=== PATIENT | female | born 1955 | race Caucasian/White ===

== ENCOUNTER → 2019-06-20 11:02 | Outpatient (CLI) | payer OTHER, SELFPAY ==
--- NOTE | 2019-06-20 | DI.MRI.S_ITS ---
PROCEDURE: MR CERVICAL SPINE WO CON INDICATIONS: Spinal stenosis, cervical region TECHNIQUE: Noncontrast sagittal T1 spin echo and T2 fast spin echo, sagittal STIR, foraminal oblique sagittal T2 fast spin echo, and axial gradient echo or T2 fast spin echo through the cervical spine. COMPARISON: [facility] [place], CR, XR CERVICAL SPINE 2 OR 3 VIEWS, 06/17/2019, 14:20. FINDINGS: Image quality: Excellent. Alignment and Curvature: There is loss of normal cervical lordosis. There is mild grade 1 anterolisthesis of C3 on C4. There is moderate one retrolisthesis of C4 on C5. Mild grade 1 retrolisthesis of C6 on C7. Mild reactive signal within the endplates adjacent to the C3-C4, C4-C5, C5-C6, C6-C7, and C7-T1 intervertebral discs. Bone Marrow: Marrow demonstrates normal overall signal. Spinal Cord: Visualized spinal cord has normal size and signal. No cerebellar tonsillar herniation. Paraspinous Soft Tissues: No paravertebral masses. Prevertebral soft tissues are normal in thickness. C2-C3: Moderate disc desiccation. Mild diffuse disc bulge. Mild bilateral facet hypertrophy. Mild uncovertebral hypertrophy bilaterally. Mild canal stenosis. Mild foraminal stenosis bilaterally. C3-C4: Moderate disc desiccation. Mild diffuse disc bulge. Mild facet and uncovertebral hypertrophy bilaterally. Mild canal stenosis. Mild bilateral foraminal stenosis. C4-C5: Moderate disc height loss and desiccation. Moderate diffuse disc bulge/osteophyte. Mild facet and uncovertebral hypertrophy bilaterally. Moderate canal stenosis. Moderate right greater than left foraminal stenosis. C5-C6: Moderate disc height loss and desiccation. Mild diffuse disc bulge/osteophyte. Moderate facet and uncovertebral hypertrophy bilaterally. Moderate canal stenosis. Severe right and moderate left foraminal stenosis. Right C6 nerve root compression. C6-C7: Moderate disc height loss and desiccation. Mild diffuse disc bulge/osteophyte with moderate superimposed broad-based left posterior lateral protrusion. Mild facet and uncovertebral hypertrophy bilaterally. Moderate to severe canal stenosis. Mild left cord flattening. Moderate bilateral foraminal stenosis. C7-T1: Moderate disc height loss and desiccation. Moderate diffuse disc bulge/osteophyte with superimposed left far lateral protrusion/osteophyte. Mild facet and uncovertebral hypertrophy bilaterally. Mild canal stenosis. Severe left and moderate right foraminal stenosis. Left C8 nerve root compression. IMPRESSION: 1. Multilevel degenerative disc and facet disease, as well as uncovertebral hypertrophy. 2. Multilevel canal stenoses, worst at C6-C7, where there is mild cord flattening present. 3. Multilevel foraminal stenoses, worst on the right at C5-C6, and on the left at C7-T1, where there is associated intraforaminal nerve root compression. Recommend correlation with clinical symptoms to ascertain relevance of this finding. Dictated by: Girish Sanchez M.D. on 06/20/2019 at 12:44 Approved by: Girish Sanchez M.D. on 06/20/2019 at 12:49
== END ==
PROVIDERS: PCP Family Medicine; Visit Provider Orthopaedic Surgery Orthopaedic Surgery of the Spine
DX: M48.02 Spinal stenosis, cervical region (principal); M50.31 Other cervical disc degeneration, high cervical region
CPT/HCPCS: 72141

== ENCOUNTER 2019-08-22 11:28 | Inpatient (IN) | payer OTHER, SELFPAY ==
[2019-08-11 13:41] VITALS: BMI 24.9
[2019-08-22] VITALS (14 sets, daily range): BP systolic 131–166; BP diastolic 52–92; PULSE 76–96; RESP 8–17; TEMP 36.1–36.7; O2SAT 92–99; BMI 24.9
--- NOTE | 2019-08-22 | DI.RAD.S_ITS ---
PROCEDURE: XR CERVICAL SPINE 2V OR 3V INDICATIONS: ACDF TECHNIQUE: 2 intraoperative view(s) of the cervical spine were acquired. COMPARISON: Cervical spine radiographs 06/17/2019. FINDINGS: New ACDF spanning C4-C7. No fractures or dislocations. Intervertebral body spacers. Endotracheal tube is in place. IMPRESSION: Expected position of the C4-C7 ACDF. Dictated by: Aba Licea M.D. on 08/22/2019 at 16:01 Approved by: Aba Licea M.D. on 08/22/2019 at 16:03
[2019-08-22] MEDS: LACTATED RINGERS 1,000 ML 42 ML IV ×2 (12:14→15:40)
--- NOTE | 2019-08-22 12:47 | PM.PREOP ---
Pre-operative Note Interval Note History & Physical reviewed/Exam performed by Physician: Yes Changes to H&P: No
[2019-08-22] MEDS: CEFAZOLIN 2 GM/100 ML FROZ.PIGGY IV (13:20)
--- NOTE | 2019-08-22 14:05 | SUR.OPER ---
Supine, head on gel donut. Arms padded with gel pads, tucked at sides, towel roll under shoulders. Safety belt at thigh. Legs uncrossed.
--- NOTE | 2019-08-22 15:47 | PM.OP.1 ---
Operative Date/Time/Diagnoses Date of procedure: 08/22/19 Time of procedure: 12:47 Pre-op diagnosis: 1. C4-5, C5-6, c6-7 spinal stenosis 2. C4-5, C5-6, C6-7 spondylosis with radiculopathy Post-op diagnosis: same Procedure & Clinicians Procedure: 1. C4-5 C5-6 C6-7 anterior cervical diskectomy and fusion 2. C4-5 C5-6 C6-7 anterior interbody cage placement 3. C4-5 C5-6 C6-7 anterior instrumentation with plate and screw placement in C4-C5-C6 and C7 vertebrae 4. Utilization of microsurgical technique and operating microscope Same procedure as scheduled: Yes Indications: Patient has been having chronic neck pain and worsening cervical radiculopathy. Patient failed multiple conservative management with worsening pain weakness and numbness in her upper extremity. Patient has been having difficulty performing activity of daily living. After discussing risks benefits of treatment options, patient elected proceed with surgery. Surgeon: Ofelia Allison Hat And Cap Sewer: Elida Caldera'Brien Click Yes if Unassisted: No Anesthesia Type: General Operative Notes Closure Type: primary Specimen(s): none sent Prosthetic devices, grafts, tissues, transplants, or devices: Globus extend plate, PEEK cages Applied: catheter Estimated Blood Loss (mL): 15 Blood products transfused: none Procedure in detail: Patient was seen in the preoperative area. Risks and benefits of the surgery was discussed with the patient. Operative consent was obtained and placed in the chart. Patient was then taken to the operative room. Prophylactic antibiotic was given less than 0.5 hr prior to skin incision. General anesthesia was administered. Patient was placed into a supine position on her radiolucent table. Bilateral shoulders were taped down to allow proper C-arm imaging. Anterior cervical area was prepped and draped in a sterile fashion. Time-out was performed at this time. Using lateral C-arm imaging, the level between C4 and C7 was identified and marked on patient's neck. A oblique incision from midline towards medial border of sternocleidomastoid muscle was made. The platysma muscle was incised in line with skin incision. Metzenbaum scissor was used to develop the plane between the medial border of sternocleidomastoid d and the strap muscles medially. The carotid sheath and its contents were identified and protected behind the hand-held retractor during the entire case. The plane between the carotid sheath and strap muscles was developed with Metzenbaum scissors. Dissection was made down to the level of the anterior cervical fascia. Longus colli muscle was incised on the anterior aspect of vertebral bodies bilaterally from C4-C7. Spinal needle was placed into the C4-5 disc space and confirmed with lateral C-arm imaging. Using microsurgical technique and operative microscope, anterior cervical diskectomy was performed at C4-5 C5-6 and C6-7 level. This was done by removing the disc material, removing the anterior and posterior osteophytes posterior longitudinal ligaments along with performing bilateral foraminotomies at all 3 levels. Patient was found to have severe central and foraminal stenosis at all 3 levels. Patient's stenosis was fully decompressed after decompression was completed. After the diskectomy was completed, 3 anterior interbody cages were obtained. The cages were packed with globus via cell bone grafting material. One cage each along with the bone grafting material was then packed into the interbody spaces from C4-C7 with one cage into each interbody level. After the cages were placed, the anterior cervical plate was stabilized to the C4-C7 vertebrae using 2 screws at each each level. Total 8 screws were placed. After confirming placement of the hardware with AP and lateral C-arm imaging, the screws were locked into the plate using the locking mechanism and torque limiting screwdriver. After the hardware was placed and confirmed with AP and lateral C-arm imaging, the wound was irrigated with sterile normal saline. The platysma muscle and the subcutaneous tissue was closed with 2-0 Vicryl. The skin was closed with 4-0Monocryl and Steri-Strips. Patient tolerated the procedure well. Patient was transferred recovery room in stable condition. There were no complications. Complications: none Post-operative Condition: stable Disposition: PACU Plan for aftercare: Admit to inpatient hospital
--- NOTE | 2019-08-22 16:39 | SUR.PHASEI ---
Pt arrived with oral airway, and needing chin lift for a brief time for airway patency. Airway out, pt breathing non labored. Awkened, restless, calm,ed when more awake. I'm just disoriented Pt reoriented.
--- NOTE | 2019-08-22 16:42 | SUR.PHASEI ---
Speech strong, swallows well.
--- NOTE | 2019-08-22 17:18 | SUR.PHASEI ---
Pt transported up to room 218. Left in stable condition.
[2019-08-22] MEDS: SODIUM CHLORIDE 0.9% 1,000 ML 100 ML IV (17:43)
[2019-08-22] MEDS: CEFAZOLIN 1 GM/50 ML FROZ.PIGGY IV (22:10)
[2019-08-22] MEDS: DOCUSATE 100 MG CAPSULE PO (22:10)
[2019-08-22] MEDS: SENNOSIDES 8.6 MG TABLET 17.2 MG PO (22:10)
[2019-08-22] MEDS: OXYCODONE IR 5 MG TABLET PO (22:14)
[2019-08-23] VITALS (9 sets, daily range): BP systolic 139–166; BP diastolic 76–97; PULSE 84–95; RESP 16–17; TEMP 36.5–37.1; O2SAT 93–98
[2019-08-23] MEDS: HYDROMORPHONE 0.5 MG INJ IV ×2 (00:43→06:05)
[2019-08-23] MEDS: OXYCODONE IR 5 MG TABLET PO (03:55)
[2019-08-23] MEDS: SODIUM CHLORIDE 0.9% 1,000 ML 100 ML IV ×2 (04:07→14:20)
[2019-08-23] MEDS: CEFAZOLIN 1 GM/50 ML FROZ.PIGGY IV (05:33)
--- NOTE | 2019-08-23 06:23 | PC.NURSE ---
C/O pain states the pill did not help that much. Pain level still @ 7-8/10 & B/P 176/107, HR. 91. Medicated with 0.5 mg. of Dilaudid IVP. Will monitor.
[2019-08-23] MEDS: MAG HYDROX/ALUM/SIMETH 30 ML UDC PO (06:54)
--- NOTE | 2019-08-23 07:02 | PC.NURSE ---
C/O burning sensation in her epigastric area, 30 ml. of Maalox admin. HOB up 38 degrees, will monitor.
[2019-08-23] MEDS: ONDANSETRON 4 MG/2 ML INJ IV ×2 (08:22→12:40)
--- NOTE | 2019-08-23 08:53 | PC.NURSE ---
Addendum entered by Zoe Munoz R.N. 08/23/19 13:23: PAIN - after zofran, discussed neck discomfort 5 on scale 0/10 it's not really painful, given 650po tylenol. Addendum entered by Zoe Munoz R.N. 08/23/19 13:14: GI/MS - able to stand and trsf to chair with occup therapy, still has underlying nausea, trying to take a few sips and bites yogurt at lunch, given 4mg iv zofran, reports pain is managed and declines medication at this time. Addendum entered by Zoe Munoz R.N. 08/23/19 10:18: GI - pt continues w/underlying nausea, feels unable to get up with PT/OT, discussed w/ortho MARIO Sears and new order rec'd,given 10mg iv reglan. Original Note: AM NOTE - pt is awake, drowsy after earlier narcotic, states pain 5 on scale 0/10 and did provide relief, does have underlying nausea, at breakfast taking a few bites yogurt, given 4mg iv zofran, LR at 125ml/hr, enamorado w/clear yellow urine, telfa w/tegaderm over cdi, wearing soft cervical collar, denies numbness or tingling extremities, able to swallow soft foods and a lunch order of tolerable food items selected.
--- NOTE | 2019-08-23 09:53 | P.PN_ITS ---
Subjective Subjective Date Patient Seen: 08/23/19 Time Patient Seen: 09:53 Interval history: Patient is POD#1 s/p C4-5 C5-6 C6-7 anterior cervical diskectomy and fusion. Moderate pain overnight with significant nausea, minimal relief with Zofran. Denies swallowing difficulty and has tolerated small sips of water and yogurt. No chest pain or shortness of breath. Exam Vital Signs (past 8 hours): - 08/23/19 05:25 08/23/19 06:55 Temperature 98.5 F Pulse Rate 93 H 93 H Respiratory Rate 16 Blood Pressure 158/97 H 143/93 H Pulse Oximetry 95 Oxygen Delivery Method Nasal Cannula Oxygen Flow Rate 0 Narrative Exam Narrative: 64 year old female resting in bed in moderate discomfort. Alert and oriented. Patient wearing soft cervical collar. Dressing in place is CDI. Patient able to move BUE freely. Systems Accountant strength is equal. 2+ radial pulses. Assessment & Plan Assessment & Plan narrative: 1x dose of Reglan ordered and IV Zofran modified to Q4hrs for continued nausea. Oxycodone 10mg added to improve pain control. Patient to mobilize with PT/OT today. Discontinue enamorado once patient has got up with PT or OT. Likely discharge to home tomorrow.
[2019-08-23] MEDS: METOCLOPRAMIDE 10 MG/2 ML INJ IV (09:59)
--- NOTE | 2019-08-23 11:30 | OT.IP.EVAL ---
Current Diagnoses Spondylolisthesis, cervical region (08/22/19) Spinal stenosis, cervical region (08/22/19) Surgery Performed Operation Date: 08/22/19 13:45 Actual Procedures p C4-5,C5-6,C6-7 ACDF w/ anterior instrumentation - Ofelia Allison MD Past Medical History (Last Updated 08/11/19 @ 14:13 by Francesca Garcia RN) Ankle fracture, left (Acute) Arthritis (Acute) GERD (gastroesophageal reflux disease) (Acute) HLD (hyperlipidemia) (Acute) Numbness and tingling (Acute) Surgical History (Last Updated 08/11/19 @ 14:13 by Francesca Garcia RN) History of bilateral carpal tunnel release (Acute) Hx of bilateral breast biopsy (Acute) Occupational Therapy Inpatient Evaluation/Re-Eval M1 PT/OT-IP Prior Functional Status Start: 08/23/19 12:07 Freq: NEEDED Status: Active Protocol: Document 08/23/19 12:08 CGR (Rec: 08/23/19 12:33 CGR [email or web address]) Medical Review Prior Functional Status Medical History Reviewed Yes Communication Pt is a competent communicator . Mobility and Gait Pt was IND in all functional mobility prior to admit. Activities of Daily Living and IADL's Pt was IND in all ADLs prior to admit. Social History Household Members spouse Living Arrangements House Number of Floors (Floors) One Floor Number of Stairs To Enter/Railing? 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 They live in [facility]. M2 OT-IP Current Condition Start: 08/23/19 12:07 Freq: Status: Active Protocol: Document 08/23/19 12:08 CGR (Rec: 08/23/19 12:33 CGR [email or web address]) Occupational Therapy Current Condition Current Condition Evaluation Date 08/23/19 Treatment Diagnosis C4-7 ACDF Diagnosis Onset Date 08/22/19 Post Operative Precautions Cervical Spine Precautions Soft Collar for Comfort,No Heavy Lifting,Log Roll M3 OT- IP Subjective and Pain Start: 08/23/19 12:07 Freq: Status: Active Protocol: Document 08/23/19 12:08 CGR (Rec: 08/23/19 12:33 CGR [email or web address]) OT- Subjective Occupational Therapy Visit Type Type Initial Evaluation Visit Start Time 10:45 Visit Stop Time 11:30 Total Visit Minutes 45 Occupational Therapy Visit Comments Patient Comments I am nauseated. OT Pain Assessment Pain When Pain Assessed At Rest Pain Present Pain Present Pain Reported Location Neck Intensity 5 Scale Used Numeric (1 - 10) Management Techniques Modification of Treatment,Re- positioning,Timing of Activity with Medications M4 OT- IP ADL's Start: 08/23/19 12:07 Freq: Status: Active Protocol: Document 08/23/19 12:08 CGR (Rec: 08/23/19 12:33 CGR [email or web address]) OT [id number] General Evaluation Self-Feeding Ability Independent Comments OT Self-Feeding Comments Pt eating soda crackers OT ADL-Grooming Comments OT Grooming Comments Not performed OT ADL-Oral Care Comments Oral Care Comments Not performed OT ADL-Dressing General Eval Lower Body Dressing Ability Standby Assistance Areas Needing Assistance Socks Comments OT Dressing Comments Pt donned socks seated EOB OT ADL-Toileting Comments OT Toileting Comments Pt with enamorado OT ADL-Bathing Comments OT Bathing Comments Not performed in this session. M5 OT- IP IADL's Start: 08/23/19 12:07 Freq: Status: Active Protocol: Document 08/23/19 12:08 CGR (Rec: 08/23/19 12:33 CGR [email or web address]) OT-Instrumental Activities of Daily Living Deficits IADL Deficits Identified Deficits Home Safety Awareness Awareness of Need for Assistance at Home Good Awareness Ability to Problem Solve Emergency Able to Problem Solve Situations Medication Management Medication Management No Deficits Identified Money Management Money Management No Deficits Identified Meal Preparation Meal Preparation Caregiver Provides Assist Rug Sample Beveler Rug Sample Beveler Caregiver Provides Assist Driving Driving Caregiver Provides Assist M6 OT- IP Functional Cognition Start: 08/23/19 12:07 Freq: Status: Active Protocol: Document 08/23/19 12:08 CGR (Rec: 08/23/19 12:33 CGR [email or web address]) Cognitive Factors Limiting Selfcare Function Cognitive Ability Level of Alertness Alert Patient Orientation Name,Age,Birthday,Month,Date, Year,Day of Week,Place, Situation Attention Span Ability Capable of Focused Attention, Capable of Sustained Attention Ability to Follow Commands Able to Follow Multi-Step Commands Memory Description No Deficits Noted Safety Awareness No Deficits Noted Problem Solving Ability No deficits Noted OT- Vision and Hearing OT- Hearing Assessment OT- Hearing Assessment WFL OT- Vision Assessment Visual Acuity WFL Visual Attentiveness WFL Occular Pursuits WFL Visual Convergence WFL Visual Osorio WFL Vision Assessment Comments bifocals when necessary. M7 OT- IP Mobility and Balance Start: 08/23/19 12:07 Freq: Status: Active Protocol: Document 08/23/19 12:08 CGR (Rec: 08/23/19 12:33 CGR [email or web address]) OT- Bed Mobility Assessment Rolling Type of Rolling Log Rolling Level of Assistance Standby Assistance Supine to Sit Supine to Sit Assist Standby Assistance Scooting Scooting to Edge of Bed Standby Assistance OT-Transfer Assessment Sit to and From Stand Sit to and from Stand Minimal Assistance Transfers Transfer Ability Minimal Assistance Technique Transfer Destination Bed,Chair Transfer Technique Stand Step Pivot Devices Transfer Assistive Devices Gait Belt Comments Mobility Comments Walker not present in room at time of eval. Stand pivot transfer to chair for safety. OT- Gait Assessment Comments Gait Ability Comments Not assessed OT- Balance Assessment Sitting Balance and Reactions Static Sitting Balance Ability Good Dynamic Sitting Balance Ability Fair M8 OT- IP Objective Assessments Start: 08/23/19 12:07 Freq: Status: Active Protocol: Document 08/23/19 12:08 CGR (Rec: 08/23/19 12:33 CGR [email or web address]) OT Gross Range of Motion Upper Extremity Range of Motion Assessment Within Functional Limits OT Strength Upper Extremity Strength Assessment Within Functional Limits Comments Strength Comments Grossly 4/5, shlds not tested to full strength d/t recent sx . OT- Coordination Assessment Upper Extremity Finger to Nose Test Within Functional Limits Finger Tapping Test Within Functional Limits OT-Muscle Tone Assessment Muscle Tone WNL Yes OT Sensation Assessment Edema Edema Absent M9 OT- IP Assessment and Plan Start: 08/23/19 12:07 Freq: Status: Active Protocol: Document 08/23/19 12:08 CGR (Rec: 08/23/19 12:33 CGR [email or web address]) OT Summary Assessment and Plan Potential Rehabilitation Potential Excellent Analytic Complexity at Evaluation Low Summary OT Impairments Pain,Range of Motion,Balance, Functional Mobility,Grooming, Dressing,Toileting,Bathing, Toilet Transfers,Shower Transfers Progress Towards Goals Progressing Toward Goals Assessment Summary Pt presents as a low complexity evaluation s/p C4- C7 ACDF. Pt with c/o nausea as her main issue on this date. Medications changed to assist with nausea and pt agreeable to working ~ 1 hour later with decreased nausea. Pt did well with bed mobility, SBA and VC for log roll and transfer to chair with min a. Pt performed all other activity sitting in chair. Pt left sitting in chair at end of session, call button within reach and all needs at time met. Reports nausea better and eating crackers as OT exited. Pt will benefit from 1-2 more OT sessions to address total body dressing, home safety and showering. Recommendation is for discharge home with family support. Goals Grooming Goal Independent Dressing Goal Independent Toileting Goal Independent Bathing Goal Independent Toilet Transfer Goal Independent Shower Transfer Goal Independent Days to Meet Goals 2 Frequency of Treatment Frequency Of Treatment Once a Day Treatment Plan OT Treatment Plan ADL Training,Functional Mobility,Patient/Family Education,Discharge Planning Other Treatment Recommendations and Next Shower Treatment Focus Discharge Recommendations OT Discharge Recommendations Home with Assistance Home Equipment Needs Functional mobility device per P.T. recommendation.
--- NOTE | 2019-08-23 11:33 | PT.IIE ---
Current Diagnoses Spondylolisthesis, cervical region (08/22/19) Spinal stenosis, cervical region (08/22/19) Surgery Performed Operation Date: 08/22/19 13:45 Actual Procedures p C4-5,C5-6,C6-7 ACDF w/ anterior instrumentation - Ofelia Allison MD Surgical History (Last Updated 08/11/19 @ 14:13 by Francesca Garcia RN) History of bilateral carpal tunnel release (Acute) Hx of bilateral breast biopsy (Acute) Medical History (Last Updated 08/11/19 @ 14:13 by Francesca Garcia RN) Ankle fracture, left (Acute) Arthritis (Acute) GERD (gastroesophageal reflux disease) (Acute) HLD (hyperlipidemia) (Acute) Numbness and tingling (Acute) Physical Therapy Inpatient Evaluation/Re-Eval M1 PT/OT-IP Prior Functional Status Start: 08/23/19 12:07 Freq: NEEDED Status: Active Protocol: Document 08/23/19 12:08 CGR (Rec: 08/23/19 12:33 CGR [id number]) Medical Review Prior Functional Status Medical History Reviewed Yes Communication Pt is a competent communicator . Mobility and Gait Pt was IND in all functional mobility prior to admit. Activities of Daily Living and IADL's Pt was IND in all ADLs prior to admit. Social History Household Members spouse Living Arrangements House Number of Floors (Floors) One Floor Number of Stairs To Enter/Railing? 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 They live in [facility]. M1 PT/OT-IP Prior Functional Status Start: 08/23/19 12:50 Freq: NEEDED Status: Active Protocol: Document 08/23/19 11:33 AB (Rec: 08/23/19 13:08 AB [id number]) Medical Review Prior Functional Status Medical History Reviewed Yes Communication able to make needs known Mobility and Gait spouse stated that pt is independent with all mobilities and ambulation without AD Activities of Daily Living and IADL's per OT's note:Pt was IND in all ADLs prior to admit. Social History Household Members spouse Living Arrangements House Number of Floors (Floors) One Floor Number of Stairs To Enter/Railing? 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 M2 PT-IP Current Condition Start: 08/23/19 12:50 Freq: NEEDED Status: Active Protocol: Document 08/23/19 11:33 AB (Rec: 08/23/19 13:08 AB [id number]) Physical Therapy Current Condition Current Condition Evaluation Date 08/23/19 Treatment Diagnosis s/p C4-7 ACDF; difficulty in walking Onset Date 08/22/19 Precautions Cervical Spine Precautions Soft Collar for Comfort,No Heavy Lifting,Log Roll M3 PT-IP Subjective Start: 08/23/19 12:50 Freq: NEEDED Status: Active Protocol: Document 08/23/19 11:33 AB (Rec: 08/23/19 13:08 AB [id number]) Subjective Physical Therapy Visit Type Type Initial Evaluation Visit Start Time 11:33 Visit Stop Time 12:15 Total Visit Minutes 42 Number of CLEANER AND PRESSER Visits 0 Physical Therapy Visit Comments Patient Comments c/o nausea Therapy Pain Assessment Pain When Pain Assessed At Rest Pain Present Pain Present Pain Reported Location Neck Intensity 5 Scale Used Numeric (1 - 10) Pain Management Techniques Apply Cold,Re-positioning, Timing of Activity with Medications M4 PT-IP Mobility and Gait Start: 08/23/19 12:50 Freq: NEEDED Status: Active Protocol: Document 08/23/19 11:33 AB (Rec: 08/23/19 13:08 AB [id number]) PT-Bed Mobility Assessment Rolling Type of Rolling Log Rolling Level of Assist Standby Assistance,1 Person Assistance Supine to Sit Supine to Sit Standby Assistance,1 Person Assistance Sit to Supine Sit to Supine Standby Assistance,1 Person Assistance Scooting Scooting to Edge of Bed Standby Assistance PT-Transfer Assessment Sit to and From Stand Sit to and from Stand Minimal Assistance Equipment Transfer Assistive Device Gait Belt,Front Wheeled Walker Orthotic/Prosthetic Devices or Brace: Yes Transfers Transfer Destination Bed,Chair Transfer Technique Stand Step Pivot Transfer Ability Level of Assist Minimal Assistance,Moderate Assistance,1 Person Assistance ,Use of Upper Extremities Comments Mobility Comments pt completed sit to stand from chair min A and cues. ambulated to the sink using FWW. educated on soft collar managment with pt and spouse and spouse was able to to assist pt. pt ambulated towards the bed. completed log roll bed mobility supine<> sit SBa and cues. pt requested to sit up on the chair and transferred to the chair using FWW min to mod A and cues. positioned pt on the chair. call light and table placed within reach. Gait Assessment Gait Gait Assistance Required: Minimum Assistance,Moderate Assistance Distance (Feet) 10 Able to Maintain Weight Bearing Status Yes During Gait Assistive Devices Assistive Device Gait Belt,Front Wheeled Walker Orthotic/Prosthetic Devices or Brace: Yes Gait Deviations General Gait Pattern Antalgic,Decreased Stride Length,Decreased Feet Clearance Factors Limiting Gait Function Factors Limiting Gait Function Decreased Activity Tolerance, Decreased Strength,Limited Range of Motion,Pain,Poor Balance,Poor Safety Awareness Comments Gait Comments pt presents with unsteady gait with decrease step length and LE elevation. pt stated that she feel weak. PT-Balance Assessment Sitting Balance and Reactions Static Sitting Balance Ability Good Dynamic Sitting Balance Ability Good Standing Balance and Reactions Static Standing Balance Ability Fair Dynamic Standing Balance Ability Fair Device Used FWW M5 PT-IP Objective Assessments Start: 08/23/19 12:50 Freq: NEEDED Status: Active Protocol: Document 08/23/19 11:33 AB (Rec: 08/23/19 13:08 AB [id number]) Orientation Orientation/Cognition Level of Alertness Alert Orientation Name,Age,Birthday,Month,Date, Year,Day of Week,Place, Situation Language Function Ability No Deficits Noted Safety Awareness Understands Safety Issues Memory Description No Deficits Noted Gross Range of Motion Lower Extremity ROM Assessment Within Functional Limits Strength Lower Extremity Strength Assessment Within Functional Limits Coordination Assessment Gross Coordination Gross Coordination WNL Muscle Tone Muscle Tone WNL Yes M6 PT-IP Treatment Start: 08/23/19 12:50 Freq: NEEDED Status: Active Protocol: Document 08/23/19 11:33 AB (Rec: 08/23/19 13:08 AB [id number]) Physical Therapy Treatment Education Education Provided Precautions,Weight Bearing Status,Post-Op Packet,Safety Brace Education [place],Patient, Caregiver Other Treatments Other Treatment Performed informed pt and spouse regarding acquiring FWW. will assess pt's progress to determine if pt will still need FWW upon d/c. M7 PT-IP Assessment and Plan Start: 08/23/19 12:50 Freq: NEEDED Status: Active Protocol: Document 08/23/19 11:33 AB (Rec: 08/23/19 13:08 AB [id number]) PT Summary Assessment and Plan Potential Rehabilitation Potential Good Status of Condition at Evaluation Evolving Summary Impairments Pain,ROM,Strength,Balance, Coordination,Sensation,Tone, Cognition,Bed Mobility, Transfers,Gait,Activity Tolerance Assessment Summary pt with c/o nausea this morning and not able to tolerate much activity. requires min to mod A with ambulation using FWW. pt plans to go home with spouse to assist her. will conduct caregiver training when appropriate and will also complete stair climbing training prior to d/c. Goals Bed Mobility Goal Independent Transfer Goal Standby Assistance,Front Wheeled Walker Gait Goal Standby Assistance,Front Wheel Walker Gait Distance 150 Other Goals LTG: to improve ambulation using SPC/without AD 200 ft SBA updown 2 steps using FWW/SPC/ without AD SBA Days to Meet Goals 5 Frequency of Treatment Frequency Of Treatment Twice a Day Treatment Plan Physical Therapy Treatment Plan Bed Mobility Training,Transfer Training,Gait Training, Therapeutic Exercise,Balance Retraining,Post Op Education, Discharge Planning,Hot or Cold Pack,Neuromuscular Re-ed, Coordination Retraining,Manual Therapy Recommendations To Nursing Amount of Assist Needed 1 Person Assist Discharge Recommendations PT Discharge Recommendations Home with Assistance, Outpatient PT Equipment Needed for Home Before FWW if not safe with SPC/ Discharge without AD
[2019-08-23] MEDS: ACETAMINOPHEN 325 MG TABLET 650 MG PO ×2 (13:17→20:58)
--- NOTE | 2019-08-23 13:17 | CM.IDA ---
Discharge Planning/Care Management CM Discharge Assessment Start: 08/23/19 13:07 Freq: Status: Active Protocol: Document 08/23/19 13:07 SIRI (Rec: 08/23/19 13:16 SIRI [id number]) Discharge Planning Assessment Assigned Airplane Designer Marj Block TRACTOR MECHANIC HELPER DPOA/Assigned Designee Name Tadeo Meyers, spouse Contact Information [phone] Advance Directives? Yes Advance Directives on File No PCP: Kane Witt Payer: [facility] History Provided By Patient,Significant Other, Medical Record Prior Living Arrangements House Household Members spouse Type of transporation used prior to Drives own vehicle admit Independent with ADL's Yes Is patient alert and oriented? Yes Barriers to Discharge No Comment Met w/pt and spouse Tadeo, explained role. Pt feeling very nauseous but able to discuss DCP w/this TRACTOR MECHANIC HELPER. Pt would like to go home later today if possible but if nausea does not subside pt unsure how well she will move w/therapy team. Ortho PA expects pt will DC Sunday. Pt and spouse have no DC concerns or questions at this time, spouse feels confident about pt returning home w/his assistance once medically cleared. No barriers identified today to return home. Therapy team has cleared pt for return home. Discharge Plan Home Transportation Arrangement Family Referrals Initiated None needed Review Status In Process
--- NOTE | 2019-08-23 14:30 | PT.IPTN ---
Current Diagnoses Spondylolisthesis, cervical region (08/22/19) Spinal stenosis, cervical region (08/22/19) Surgery Performed Operation Date: 08/22/19 13:45 Actual Procedures p C4-5,C5-6,C6-7 ACDF w/ anterior instrumentation - Ofelia Allison MD Physical Therapy Treatment Note M2 PT-IP Current Condition Start: 08/23/19 12:50 Freq: NEEDED Status: Active Protocol: Document 08/23/19 11:33 AB (Rec: 08/23/19 13:08 AB [id number]) Physical Therapy Current Condition Current Condition Evaluation Date 08/23/19 Treatment Diagnosis s/p C4-7 ACDF; difficulty in walking Onset Date 08/22/19 Precautions Cervical Spine Precautions Soft Collar for Comfort,No Heavy Lifting,Log Roll M3 PT-IP Subjective Start: 08/23/19 12:50 Freq: NEEDED Status: Active Protocol: Document 08/23/19 14:30 AB (Rec: 08/23/19 15:54 AB [id number]) Subjective Physical Therapy Visit Type Type Treatment Note Visit Start Time 14:30 Visit Stop Time 14:55 Total Visit Minutes 25 Number of SURGICAL SCRUB TECHNICIAN Visits 0 Physical Therapy Visit Comments Patient Comments pt agreeable to do PT. stated that she is feeling better but still has nausea but not as bad as this morning. Therapy Pain Assessment Pain When Pain Assessed At Rest Pain Present Pain Present Pain Reported Location Neck Intensity 3 Scale Used Numeric (1 - 10) Pain Management Techniques Re-positioning,Timing of Activity with Medications M4 PT-IP Mobility and Gait Start: 08/23/19 12:50 Freq: NEEDED Status: Active Protocol: Document 08/23/19 14:30 AB (Rec: 08/23/19 15:54 AB [id number]) PT-Bed Mobility Assessment Rolling Type of Rolling Log Rolling Sit to Supine Sit to Supine Standby Assistance PT-Transfer Assessment Sit to and From Stand Sit to and from Stand Minimal Assistance Equipment Transfer Assistive Device Gait Belt,Front Wheeled Walker Orthotic/Prosthetic Devices or Brace: No Transfers Transfer Destination Bed Transfer Technique ambulated using FWW Transfer Ability Level of Assist Minimal Assistance,1 Person Assistance,Use of Upper Extremities Comments Mobility Comments pt sittin avinash chair and agreed to do PT. completed si tto stand from chair min A and cues and ambulated in room ~ 20 ft using FWW min A and cues . pt requested to go back to bed and ambulated towards the bed. completed bed mobility log roll si to supine SBA and cues. positioned pt in bed. call light and table placed within reach. Gait Assessment Gait Gait Assistance Required: Minimum Assistance Distance (Feet) 20 Able to Maintain Weight Bearing Status Yes During Gait Assistive Devices Assistive Device Gait Belt,Front Wheeled Walker Orthotic/Prosthetic Devices or Brace: No Gait Deviations General Gait Pattern Antalgic,Decreased Stride Length,Decreased Feet Clearance,Step-to Gait Factors Limiting Gait Function Factors Limiting Gait Function Decreased Activity Tolerance, Decreased Strength,Poor Balance Comments Gait Comments pt ambulated in room using FWW min A and cues ~ 20 ft. presents with very slow german with increase UE support on FWW. pt stated that she still feels week. informed pt and spouse that needs a FWW upon d/c at this time and both agreed. spouse is trying to get one for pt. will f/u if spouse was able to obtain one, if not, pt needs FWW order from the doctor and one will be dispensed. M5 PT-IP Objective Assessments Start: 08/23/19 12:50 Freq: NEEDED Status: Active Protocol: Document 08/23/19 11:33 AB (Rec: 08/23/19 13:08 AB [id number]) Orientation Orientation/Cognition Level of Alertness Alert Orientation Name,Age,Birthday,Month,Date, Year,Day of Week,Place, Situation Language Function Ability No Deficits Noted Safety Awareness Understands Safety Issues Memory Description No Deficits Noted Gross Range of Motion Lower Extremity ROM Assessment Within Functional Limits Strength Lower Extremity Strength Assessment Within Functional Limits Coordination Assessment Gross Coordination Gross Coordination WNL Muscle Tone Muscle Tone WNL Yes M6 PT-IP Treatment Start: 08/23/19 12:50 Freq: NEEDED Status: Active Protocol: Document 08/23/19 14:30 AB (Rec: 08/23/19 15:54 AB [id number]) Physical Therapy Treatment Education Education Provided Precautions,Safety M7 PT-IP Assessment and Plan Start: 08/23/19 12:50 Freq: NEEDED Status: Active Protocol: Document 08/23/19 14:30 AB (Rec: 08/23/19 15:54 AB [id number]) PT Summary Assessment and Plan Potential Rehabilitation Potential Good Summary Impairments Pain,ROM,Strength,Balance,Bed Mobility,Transfers,Gait, Activity Tolerance Progress Towards Goals Slow Progress due to Activity Tolerance Assessment Summary pt is progressing slowly but continues to be limited with mobility due to decrease strength and decrease activity tolerance. pt plans to go home and spouse to assist her. infomred pt and spouse regarding use of FWW at this time and agreed. spouse is trying to get one for pt. will need to f/u if therapy needs to obtain and doctor's order for FWW and dispense one to pt. caregiver training will be condcuted when appropriate as well as stair training. Goals Bed Mobility Goal Independent Transfer Goal Standby Assistance,Front Wheeled Walker Gait Goal Standby Assistance,Front Wheel Walker Gait Distance 150 Other Goals LTG: to improve ambulation using SPC/without AD 200 ft SBA updown 2 steps using FWW/SPC/ without AD SBA Days to Meet Goals 5 Frequency of Treatment Frequency Of Treatment Twice a Day Treatment Plan Physical Therapy Treatment Plan Bed Mobility Training,Transfer Training,Gait Training, Therapeutic Exercise,Balance Retraining,Post Op Education, Discharge Planning,Hot or Cold Pack,Neuromuscular Re-ed, Coordination Retraining,Manual Therapy Recommendations To Nursing Amount of Assist Needed 1 Person Assist Discharge Recommendations PT Discharge Recommendations Home with Assistance, Outpatient PT Equipment Needed for Home Before FWW if not safe with SPC/ Discharge without AD
[2019-08-23] MEDS: SIMVASTATIN 20 MG TABLET PO (20:58)
--- NOTE | 2019-08-23 23:14 | PC.NURSE ---
Addendum entered by Meghan Pacheco R.N. 08/23/19 23:17: Patient did get out of bed to attempt to have a BM but was unsuccessful. Original Note: No episodes of vomiting during evening shift but periodic light nausea- patient did not want Zofran. She ate just a few bites of her dinner and some crackers. Patient declined stool softeners because she felt like she did not need them and would be able to have a BM on her own. Tylenol was given after patient reported some pain of her shoulders and neck. Vitals stable, NS running @ 100 ml/hr.
[2019-08-24] MEDS: ONDANSETRON 4 MG/2 ML INJ IV (00:12)
[2019-08-24] MEDS: SODIUM CHLORIDE 0.9% FLUSH 10 ML IV ×2 (01:50→08:52)
[2019-08-24] MEDS: ACETAMINOPHEN 325 MG TABLET 650 MG PO (02:41)
[2019-08-24 08:00] VITALS: BP 148/89; PULSE 99; RESP 16; TEMP 37; O2SAT 96
[2019-08-24] MEDS: DOCUSATE 100 MG CAPSULE PO (08:52)
--- NOTE | 2019-08-24 09:44 | PM.DS.1 ---
History of Present Illness History of Present Illness Chief complaint: [id number] Cervical Fusion Discharge Providers Provider Date of admission: 08/22/19 11:28 Discharge Date: 08/24/19 Primary care physician: Kane Witt DO Consults: 08/22/19 17:29 Consult to Occupational Therapy Evaluate & Treat Comment: Physician Instructions: Evaluate and treat Consult to Physical Therapy Evaluate & Treat Comment: Physician Instructions: Evaluate and Treat Discharge provider: Dorothy Carrillo MD Summary Hospital Course Discharge Diagnosis: Neck pain Hospital Course: Patient was admitted to the floor postoperatively. She underwent a cervical fusion. On postop day 1 the patient had nausea and pain. She had increase in her pain medication and nausea medication. She states she is feeling much better today. She is ambulating in the hallway with her soft collar and her walker. Patient is POD#2 s/p C4-5 C5-6 C6-7 anterior cervical diskectomy and fusion. Pain is controlled. Nausea is controlled. She would like to go home today. She'd like to minimize narcotic medication. She has not had any since last night. She has tolerated a p.o. diet. Vital signs have remained stable. Patient is appropriate for discharge home. Status at Discharge Cognitive/behavioral status at discharge: oriented Functional status at discharge: independent ambulation Overall status at discharge: patient is progressing back to baseline Time Spent with Patient Time spent: Less than 30 minutes Exam Vital Signs (past 8 hours): - 08/24/19 08:00 Temperature 98.6 F Pulse Rate 99 H Respiratory Rate 16 Blood Pressure 148/89 H Pulse Oximetry 96 Oxygen Delivery Method Nasal Cannula Oxygen Flow Rate 0 Narrative Exam Narrative: General examination: Alert oriented female no acute distress ambulate in the villa with a walker HEENT exam: Soft collar in place. Dressing clean dry and intact on the neck. Respiratory exam: Unlabored on room air CV exam: Regular rate and rhythm Musculoskeletal exam: 5/5 strength. Neurovascularly intact bilateral upper and lower extremities Discharge Plan Discharge Plan Patient Disposition: Home Discharge comment: f/u with [facility] as scheduled Discharge orders & Medications Prescriptions: New acetaminophen 325 mg Tablet 650 mg PO Q6HR PRN (Reason: Pain, Mild (1-3)) Qty: 30 RF: 0 docusate sodium [DOK] 100 mg Capsule 100 mg PO BID Qty: 30 RF: 0 oxycodone 5 mg Tablet 5 mg PO Q3HR PRN (Reason: Pain, Moderate (4-6)) Qty: 20 RF: 0 hydroxyzine pamoate 25 mg Capsule 25 mg PO Q4HR PRN (Reason: Nausea And Vomiting) Qty: 10 RF: 0 ondansetron HCl [Zofran] 4 mg tablet 4 mg PO Q8H PRN (Reason: nausea and vomiting) Qty: 7 RF: 0 Continued aspirin 81 mg Tablet,Delayed Release (Dr/Ec) 81 mg PO DAILY RF: 0 simvastatin 20 mg Tablet 20 mg PO BEDTIME RF: 0 Discontinued meloxicam 15 mg Tablet 15 mg PO DAILY RF: 0 ibuprofen-diphenhydramine cit [Advil PM] 200-38 mg Tablet 2 cap PO BEDTIME RF: 0 Follow up/Referrals: Kane Witt DO [Primary Care Provider] - Diet/Activity/Treatments Activity: no bending/twisting no lifting > 10#. soft collar Skin/Wound/Dressing Care Report to your healthcare provider any signs of infection, such as:: chills, fever, night sweats, increased pain, unusual drainage and unusual redness Dressing: keep c/d/i Visit Report/Discharge Packet Stand Alone Forms: Surgery Discharge Discharge Data Primary Care Provider: Kane Witt VTE Deep Vein Thrombosis/Pulmonary Embolism Present on Admission: No
--- NOTE | 2019-08-24 10:12 | PT.IPTN ---
Current Diagnoses Spondylolisthesis, cervical region (08/22/19) Spinal stenosis, cervical region (08/22/19) Surgery Performed Operation Date: 08/22/19 13:45 Actual Procedures p C4-5,C5-6,C6-7 ACDF w/ anterior instrumentation - Ofelia Allison MD Physical Therapy Treatment Note M2 PT-IP Current Condition Start: 08/23/19 12:50 Freq: NEEDED Status: Active Protocol: Document 08/23/19 11:33 AB (Rec: 08/23/19 13:08 AB [id number]) Physical Therapy Current Condition Current Condition Evaluation Date 08/23/19 Treatment Diagnosis s/p C4-7 ACDF; difficulty in walking Onset Date 08/22/19 Precautions Cervical Spine Precautions Soft Collar for Comfort,No Heavy Lifting,Log Roll M3 PT-IP Subjective Start: 08/23/19 12:50 Freq: NEEDED Status: Active Protocol: Document 08/24/19 10:12 CLB (Rec: 08/24/19 12:03 CLB [id number]) Subjective Physical Therapy Visit Type Type Treatment Note Visit Start Time 10:12 Visit Stop Time 10:28 Total Visit Minutes 16 Number of PLODDING OPERATOR Visits 1 Physical Therapy Visit Comments Patient Comments pt agreeable to do therapy Therapy Pain Assessment Pain When Pain Assessed At Rest Pain Present Pain Present Pain Reported Location Neck Intensity 2 Scale Used Numeric (1 - 10) Pain Management Techniques Re-positioning,Timing of Activity with Medications M4 PT-IP Mobility and Gait Start: 08/23/19 12:50 Freq: NEEDED Status: Active Protocol: Document 08/24/19 10:12 CLB (Rec: 08/24/19 12:03 CLB [id number]) PT-Bed Mobility Assessment Rolling Type of Rolling Log Rolling Sit to Supine Sit to Supine Standby Assistance Scooting Scooting to Edge of Bed Standby Assistance PT-Transfer Assessment Sit to and From Stand Sit to and from Stand Standby Assistance Equipment Transfer Assistive Device None,Gait Belt,Front Wheeled Walker Orthotic/Prosthetic Devices or Brace: No Transfers Transfer Destination Bed,Chair Transfer Technique ambulated Transfer Ability Level of Assist Standby Assistance Comments Mobility Comments Pt is SBA for all mobility and transfers w/o AD. Gait Assessment Gait Gait Assistance Required: Standby Assistance,Contact Guard Assist Distance (Feet) 200 Able to Maintain Weight Bearing Status Yes During Gait Assistive Devices Assistive Device None,Gait Belt,Front Wheeled Walker Orthotic/Prosthetic Devices or Brace: No Gait Deviations General Gait Pattern Antalgic,Decreased Stride Length,Decreased Feet Clearance,Step-to Gait Factors Limiting Gait Function Factors Limiting Gait Function Decreased Activity Tolerance, Decreased Strength,Poor Balance Comments Gait Comments Pt able to ambulate ~200ft in villa w/o AD with SBA-CGA. Pt is steady w/o dizziness or LOB . Stair Climbing Assessment Evaluation Level of Assist On Stairs Contact Guard Assistance Devices Stair Climbing Assistive Devices None Technique/Endurance Stair Climbing Direction Ascend and Descend Stair Climbing Technique Step Over Step Number of Steps Climbed 3 Stair Climbing Set # Repetitions (reps) 2 Comments Stair Climbing Comments Pt able to climb up stairs w/o rail CGA and required CGA and use of assist with pts hand on shoulder to assist with descent. M5 PT-IP Objective Assessments Start: 08/23/19 12:50 Freq: NEEDED Status: Active Protocol: Document 08/23/19 11:33 AB (Rec: 08/23/19 13:08 AB [id number]) Orientation Orientation/Cognition Level of Alertness Alert Orientation Name,Age,Birthday,Month,Date, Year,Day of Week,Place, Situation Language Function Ability No Deficits Noted Safety Awareness Understands Safety Issues Memory Description No Deficits Noted Gross Range of Motion Lower Extremity ROM Assessment Within Functional Limits Strength Lower Extremity Strength Assessment Within Functional Limits Coordination Assessment Gross Coordination Gross Coordination WNL Muscle Tone Muscle Tone WNL Yes M6 PT-IP Treatment Start: 08/23/19 12:50 Freq: NEEDED Status: Active Protocol: Document 08/23/19 14:30 AB (Rec: 08/23/19 15:54 AB [id number]) Physical Therapy Treatment Education Education Provided Precautions,Safety M7 PT-IP Assessment and Plan Start: 08/23/19 12:50 Freq: NEEDED Status: Active Protocol: Document 08/24/19 10:12 CLB (Rec: 08/24/19 12:03 CLB [id number]) PT Summary Assessment and Plan Potential Rehabilitation Potential Good Summary Impairments Pain,ROM,Strength,Balance,Bed Mobility,Transfers,Gait, Activity Tolerance Assessment Summary Pt has been up ambulating in [place] w/FWW IND per RN. Pt is SBA-CGA w/o AD and is SBA for all mobility. Pt's purchased FWW for home use if pt needs. Pt's is able to assist pt with all mobility and pt seems safe to d/c home with husbands assist when medically stable. Goals Bed Mobility Goal Independent Transfer Goal Standby Assistance,Front Wheeled Walker Gait Goal Standby Assistance,Front Wheel Walker Gait Distance 150 Other Goals LTG: to improve ambulation using SPC/without AD 200 ft SBA updown 2 steps using FWW/SPC/ without AD SBA Days to Meet Goals 5 Frequency of Treatment Frequency Of Treatment Twice a Day Treatment Plan Physical Therapy Treatment Plan Bed Mobility Training,Transfer Training,Gait Training, Therapeutic Exercise,Balance Retraining,Post Op Education, Discharge Planning,Hot or Cold Pack,Neuromuscular Re-ed, Coordination Retraining,Manual Therapy Recommendations To Nursing Amount of Assist Needed 1 Person Assist Discharge Recommendations PT Discharge Recommendations Home with Assistance, Outpatient PT Equipment Needed for Home Before purchased FWW Discharge
--- NOTE | 2019-08-24 12:02 | PC.NURSE ---
Discharge pt states pain controlled with tylenol only. Has Rx at home for tramadol, if tylenol doesn't work she is to try tramadol, if that doesn't work oxycodone. Left with soft collar in place. D/c instructions provided to pt. Aware to f/u with MD and also to contact him with any additional questions or concerns. PIV removed prior to d/c. left in w/c with INTERMEDIATE DESIGNER escort.
--- NOTE | 2019-08-24 13:21 | PC.NURSE ---
Late Add Pt had enamorado removed this AM around 09013. Able to urinate, missed hat. Bladder scan for PVR was 44ml. Pt aware to monitor and contact MD if unable to urinate.
== END 2019-08-24 11:30 | disposition home or self-care (01) | DRG 473 ==
PROVIDERS: Admitting Provider Orthopaedic Surgery Orthopaedic Surgery of the Spine; PCP Family Medicine; Visit Provider Orthopaedic Surgery Orthopaedic Surgery of the Spine
PROC: 0RG20A0 Fusion of 2 or more Cervical Vertebral Joints with Interbody Fusion Device, Anterior Approach, Anterior Column, Open Approach (ICD-10-PCS; principal; 2019-08-22 13:45)
DX: M48.02 Spinal stenosis, cervical region (principal); M47.22 Other spondylosis with radiculopathy, cervical region; M79.622 Pain in left upper arm; M81.0 Age-related osteoporosis without current pathological fracture; E78.5 Hyperlipidemia, unspecified; R11.0 Nausea; G89.18 Other acute postprocedural pain
CPT/HCPCS: 72040; 76000; 94760; 97116; 97162; 97165; 97530; 97535; C1776; J0690; J1100; J1170; J2405; J2704; J2765; J3010